=== PATIENT | female | born 1945 ===

== ENCOUNTER 2024-09-17 15:39 | Emergency (ER) | payer MEDICARE, SELFPAY ==
--- OUTSIDE RECORDS SUMMARY | 2024-09-17 15:43 | XMS_ITS | Encounter Summary ---
Author Organization [facility] Healthcare Address [address] [place] [address] Care Team Providers Care Life Insurance Actuary Name Role Phone HiteshBridgette paulajane Crandall DO Primary Care Provider [phone] Raz Hancock MD Unavailable [phone] Maggie Hill RN Unavailable Yong Nguyễn MA Unavailable [phone] Encounter Details Date Type Department Care Team (Late st Contact Info) Description 04/14/2022 Orders Only [facility] Surgeon [address] [place] [address] Raz Hancock MD [address] [facility] [phone] [place] [address] Calculus of gallbladder with cholecystitis without biliary obstruction, unspecified cholecystitis acuity (Primary Dx) Social History Tobacco Use Types Packs/Day Years Used Date Smoking Tobacco: Former Smokeless Tobacco: Never Comments:Smoking History Pac ks/day: 5 Cigarettes Alcohol Use Standard Drinks/Week Comments Yes 0 (1 standard drink = 0.6 oz pur e alcohol) Humiliation, Afraid, Rape, and Kick questionnair e Answer Date Recorded Fear of Current or Ex-Partner No Emotionally Abused No 03/30/2019 Physically Abused No 03/30/2019 Sexually Abused No 03/30/2019 Social Connection and Isolat ion Panel [NHANES] Answer Date Recorded Frequency of Communication w ith Friends and Family More than three times a week 03/30/2019 Frequency of Social Gatherin gs with Friends and Family More than three times a week 03/30/2019 Attends Evangelical Services 1 to 4 times per year 03/30/2019 Active Member of Clubs or Organizations Yes 03/30/2019 Attends Club or Organization Meetings 1 to 4 keo es per year 03/30/2019 Marital Status 03/30/2019 Overall Financial Resource Strain (CARDIA) Answe r Date Recorded Difficulty of Paying Living Expenses Not hard at all 03/30/2019 PHQ-2 Answer Date Recorded PHQ-2 Total Score (If total score is 3 or more points, staff should administer the PHQ-9) 0 05/01/2021 [facility] - Occupational Stress Questionnaire Answer Date Recorded Feeling of Stress Not at all 03/30/2019 Exercise Vital Sign Answer Date Recorde d Days of Exercise per Week 7 days 2019 Minutes of Exercise per Session 30 min 03/30/2019 Hunger Vital Sign Answer Date Recorded Worried About Running Out of Food in the Last Ye ar Never true 03/30/2019 Ran Out of Food in the Last Year Never true 03/30/2019 PRAPARE - Transportation Answer Date Re corded Lack of Transportation (Medical) No 03/30/2019 Lack of Transportation (Non-Medical) No 03/30/2019 Comments No Sex and Gender Information Value Date Recorded Sex Assigned at Not on file Legal Sex Female 11:36 AM [employer] Gender Identity Not on file Sexual Orientation Not on file documented as of this encounter Progress Notes * Julieta Shane - 04/14/2022 2:01 PM CST hida documented in this encounter Plan of Treatment Not on file documented as of this encounter Visit Diagnoses Diagnosis Calculus of gallbladder with cholecystitis without biliary obstruction, unspecified cholecystitis acuity- Primary documented in this encounter Care Teams Life Insurance Actuary Relationship Specialty Start Date End Date Tee Proctor DO [address] [place] [address] PCP - General Family Medicine 05/19/18 Raz Hancock MD [address] [place] [address] Consulting Physician General Surgery 04/25/22 Maggie Hill RN [address] [place] [address] Population Health Manager 04/29/22 06/19/22 Yogn Nguyễn MA [address] [place] [address] ACO Care Loan Documents Closer 01/07/24 01/10/24 documented as of this encounter
--- OUTSIDE RECORDS SUMMARY | 2024-09-17 15:43 | XMS_ITS | Patient Health Record ---
Author Organization [facility] Address [address] [place] [address] Support Name Relationship Address Phone MAITE BEE Guarantor Unknown [phone] Reason For Referral No Information Plan Of Treatment No Information Insurance Providers Payer Name Payer Address Payer Phone Subscriber Number Group Number Insured Name Patient Relationship to Insured Coverage Start Date Coverage End Date [facility] [address] [place] [phone] [id number] CARLITO BEE 4
--- OUTSIDE RECORDS SUMMARY | 2024-09-17 15:43 | XMS_ITS | Clinical Summary ---
Author Organization [facility] Address [address] [place] [id number] Phone Care Team Providers Care Supervisor [facility] Name Role Phone HiteshBridgette paulajane Crandall DO Primary Care Provider [phone] Raz Hancock MD Unavailable [phone] Allergies No known active allergies Medications cetirizine (ZyrTEC) 10 mg tablet Take 1 tablet (10 mg total) by mouth daily as needed Active melatonin 5 mg tablet Take 1 tablet (5 mg total) by mouth nightly Active estradioL (ESTRACE) 0.5 mg tablet Take 1 tablet (0.5 mg total) by mouth daily 30 tablet 11 06/19/2021 Active cholecalciferol (VITAMIN D-3) 25 mcg (1,000 unit) tablet Take 2 tablets (2,000 Units total) by mouth daily Active magnesium oxide (MAG-OX) 400 mg (241.3 mg elemental magnesium) tabletIndicatio ns:hypomagnesem ia Take 1 tablet (400 mg total) by mouth daily Active aspirin 81 mg enteric coated tablet Take 1 tablet (81 mg total) by mouth daily Active bacitracin-poly myxin B (POLYSPORIN) ophthalmic ointment Apply to left eye 2 (two) times a day 3.5 g 01/06/2024 Active ALPRAZolam (XANAX) 0.5 mg tabletIndicatio ns:Anxiety Take 1 tablet (0.5 mg total) by mouth nightly as needed for anxiety 90 tablet 1 05/03/2024 Active escitalopram (LEXAPRO) 10 mg tabletIndicatio ns:Anxiety TAKE 1 TABLET(10 MG) BY MOUTH DAILY 100 tablet 1 07/29/2024 Active amLODIPine (NORVASC) 10 mg tabletIndicatio ns:Renovascular hypertension,St age 3a chronic kidney disease (HCC) TAKE 1 TABLET(10 MG) BY MOUTH DAILY 100 tablet 1 07/29/2024 Active levothyroxine (SYNTHROID) 25 mcg tabletIndicatio ns:Hypothyroidi sm due to acquired atrophy of thyroid TAKE 1 TABLET(25 MCG) BY MOUTH DAILY 100 tablet 1 07/29/2024 Active Active Problems Problem Noted Date Diagnosed Date Traumatic complete tear of right rotator cuff Caregiver role strain 2021 Assessment & Plan (2021 12:53 PM CDT): 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 She feels better if is able to get a couple hours out of the house. She reports he has depression and is on medications. He's going through a tough time right now and that weighs on her. She feels her mood is well controlled with escitalopram. Restless leg 2021 Assessment & Plan (2021 12:52 PM CDT): Symptoms of jerking legs at night and also burning in legs and feet. Screen for iron deficiency, electrolyte abnormality. If labs normal, consider low dose pramipexole at HS. Gallbladder polyp 06/19/2021 Overview (06/19/2021): RUQ US at [facility] May 2021 demonstrated gallbladder polyp but no wall thickening or stones. Recommend repeating US of RUQ in one year, has been ordered for [facility]. Assessment & Plan (03/24/2022 1:42 PM TIE LOADER): Noted on ultrasound last May, will get updated ultrasound. Could be obstructive contributing to recurrent episodes right upper quadrant pain Assessment & Plan (2021 12:55 PM CDT): Noted on US of RUQ from May 2021. Recommend one year repeat in May 2022. Patient is agreeable. Gastroesophageal reflux disease without esophagi tis 06/14/2021 Assessment & Plan (2021 12:54 PM CDT): Asymptomatic, no longer on medication. Assessment & Plan (06/14/2021 2:30 PM CDT): She's noticed a lot of belching. Has epigastric discomfort. Avoid NSAIDs. One month of PPI given. Recommend anti reflux diet. 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 Continue careful follow up with dermatology. Hypothyroidism due to acquired atrophy of thyroi d 05/20/2018 Assessment & Plan (04/23/2022 5:34 PM TIE LOADER): On low-dose levothyroxine as an outpatient, continue on admission Assessment & Plan (10/31/2020 11:34 AM CDT): Doing well, refilled medication for her. Assessment & Plan (04/25/2020 11:39 AM TIE LOADER): She continues on levothyroxine 25mcg daily and TSH is normal. Continue current medication regimen. Assessment & Plan (04/04/2019 3:39 PM TIE LOADER): Thyroid labs are normal. Continue levothyroxine 25mcg daily. She reports bowels are more normal since starting on the levothyroxine. Assessment & Plan (11/30/2018 11:35 AM CDT): Patient continues on low-dose Synthroid, she reports that her symptoms remain well controlled. She previously had issues with constipation, dry skin and hair loss this is all resolved with a low-dose lisinopril. Continue with current management. Assessment & Plan (05/20/2018 12:33 PM CDT): Mild elevation in TSH noted toward the end of last year, may have been physiologic given her high stress. She is currently on a very low dose of Synthroid and tolerating well. Does have marked could decrease in her subjective symptoms, will continue with current therapy. Recent TSH was unremarkable. History of renal artery stenosis 02/02/2018 Assessment & Plan (04/25/2020 11:39 AM TIE LOADER): History of renal artery stenosis and L renal artery stent. Assessment & Plan (11/07/2019 11:27 AM CDT): History of renal artery stenosis with L renal artery stent. Assessment & Plan (02/02/2018 4:58 PM TIE LOADER): History of renal artery stenosis with L renal artery stent. Renal US/doppler exam normal last week. Stage 3a chronic kidney disease 01/26/2018 Assessment & Plan (01/13/2024 9:57 PM TIE LOADER): Stable on most recent labs. Continue with current medication regimen. Renally dose medications as needed Assessment & Plan (04/26/2022 11:29 AM TIE LOADER): Renal function stable, potassium decreased to 2.4, repeat electrolytes after IV replacement Assessment & Plan (05/01/2021 12:28 PM TIE LOADER): Last known GFR at 48. Recheck renal function today. Encourage good hydration. Keep blood pressure well controlled. Assessment & Plan (04/27/2020 2:20 PM TIE LOADER): Stage IIIa CKD. Has renal artery stenosis with L renal artery stent. Continue to monitor renal function carefully. Assessment & Plan (04/04/2019 3:39 PM TIE LOADER): Creatinine 1.1. Monitor. Stay well hydrated. Assessment & Plan (01/26/2018 3:05 PM TIE LOADER): Monitor renal function. BMI 21.0-21.9, adult 01/26/2018 Assessment & Plan (2021 12:54 PM CDT): Healthy weight. Assessment & Plan (06/14/2021 1:43 PM CDT): Healthy weight. Assessment & Plan (05/01/2021 12:00 PM TIE LOADER): Healthy weight. Assessment & Plan (10/31/2020 11:33 AM CDT): Healthy weight. Assessment & Plan (04/25/2020 11:38 AM TIE LOADER): Healthy weight. Assessment & Plan (11/07/2019 11:13 AM CDT): Healthy weight. Assessment & Plan (04/04/2019 4:03 PM TIE LOADER): Healthy weight. Assessment & Plan (03/05/2018 12:57 PM TIE LOADER): She is of healthy BMI. Assessment & Plan (02/02/2018 4:59 PM TIE LOADER): She is of healthy weight. Assessment & Plan (01/26/2018 3:05 PM TIE LOADER): She is of healthy weight. History of spinal surgery 07/09/2013 Overview (05/30/2016): History of back surgery History of hysterectomy 07/09/2013 Overview (05/30/2016): History of hysterectomy Vitamin D deficiency 01/31/2013 Overview (05/29/2016): Vitamin D deficiency Assessment & Plan (05/01/2021 12:32 PM TIE LOADER): She continues on vitamin D 2000 international units daily. Check vitamin D level today. Assessment & Plan (01/19/2018 12:57 PM TIE LOADER): Vitamin D level pending. Continue Vitamin D supplement. Insomnia 12/29/2012 Overview (05/28/2016): Insomnia Assessment & Plan (04/23/2022 5:34 PM TIE LOADER): Continue home medications on admission Assessment & Plan (11/30/2018 11:36 AM CDT): Patient continues to do well with her insomnia. She uses Xanax on an as-needed basis, rare use, only a few times per month. Patient previously was on Ambien and did not tolerate well. Will continue with current management plan. We discussed sleep hygiene again in depth today. Anxiety 12/29/2012 Overview (05/30/2016): Anxiety Assessment & Plan (04/23/2022 5:34 PM TIE LOADER): On Lexapro as an outpatient, continue on admission Assessment & Plan (2021 12:56 PM CDT): Well controlled with escitalopram 10mg and alprazolam 0.5mg daily PRN at HS. Assessment & Plan (05/01/2021 12:27 PM TIE LOADER): Doing very well on escitalopram 10mg daily. Uses alprazolam to help with sleep (script sent Apr 03 for 60 tablets). Assessment & Plan (10/31/2020 12:41 PM CDT): Reports escitalopram 10mg daily is helping with her mood. Uses alprazolam at HS to help with sleep. To continue current medications. Assessment & Plan (11/07/2019 11:26 AM CDT): She's still anxious and a little depressed. 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 Continues on escitalopram 10mg daily. Uses alprazolam at HS to help her sleep, once to twice weekly. She's staying active and doing yard work and puzzles at home. Monitor. Assessment & Plan (04/04/2019 3:38 PM TIE LOADER): She feels anxiety is stable. Currently on escitalopram 10mg daily. Has continuous amts of stress from sick family members. Daughter had successful TELEGRAPHER AGENT shunt revision but her (daughter's) broke pelvis. Autistic's son's case was dropped. is going blind and helps care for him. Sister's cancer is now gone. Monitor mood. Assessment & Plan (11/30/2018 11:35 AM CDT): Patient reports that her symptoms are relatively well controlled. She has known anxiety and takes Lexapro. Reports that with her going blind and her son-in-law having recent pelvic fracture this has increased her anxiety some, but overall she feels she is doing well. She did not wish to change the dose of her medication today. Patient was given strict return precautions, could consider increase in Lexapro to 20 mg. Assessment & Plan (05/20/2018 12:33 PM CDT): Symptoms better controlled on Lexapro. Patient had marked increase in her symptoms with multiple family issues, the seems to be resolving which is improving her anxiety overall. Will refill her Xanax today. Patient uses infrequently, low concern of abuse or dependency. Continue with current regimen. Assessment & Plan (03/05/2018 1:04 PM TIE LOADER): Doing a little better. Continues on escitalopram 10mg daily. Assessment & Plan (02/02/2018 5:01 PM TIE LOADER): She is going through an incredibly stressful period in life. Her son is being accused of being a stalker incorrectly and he has autism. He spent a night in penitentiary because of it and now has PTSD. 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 Multiple family members are sick. She helps care for her , who is blind from macular degeneration. Daughter recently had another TELEGRAPHER AGENT shunt placed for hydrocephalus. Brother from lung cancer. Sister has cancer, on immunotherapy for stage IV cancer. She does not want to start SSRI. She will let me know if changes her mind. Assessment & Plan (01/26/2018 3:04 PM TIE LOADER): Anxiety is worse. She did not want to increase escitalopram. I do think anxiety is playing a role in the hypertension to some degree. Monitor. Use alprazolam as needed for severe anxiety. Continue 10mg escitalopram. Assessment & Plan (01/19/2018 12:57 PM TIE LOADER): Continue lexapro and I will have Dr Charlie thibodeaux. Renovascular hypertension 02/23/1998 Overview (05/30/2016): Hypertension Assessment & Plan (04/26/2022 11:30 AM TIE LOADER): History of previous bilateral renal artery stenosis status post stenting more than 10 years ago. Resume amlodipine and observe Assessment & Plan (2021 12:52 PM CDT): Initial BP always high but better on recheck. Bp at goal, continue current antihypertensive regimen. Assessment & Plan (05/01/2021 12:30 PM TIE LOADER): She continues on amlodipine 5mg and HCTZ 25mg daily. Today BP is nearing 140/90. She reports white coat syndrome. Monitor BP closely. Follow up in six months. Assessment & Plan (10/31/2020 12:37 PM CDT): BP 140 systolic today. She does not take her medications until early afternoon so does not have medication in her system yet. Also reports mild white coat syndrome. Recommend she continue amlodipine 5mg daily, HCTZ 25mg daily. Follow up for physical in six months. Assessment & Plan (04/25/2020 11:39 AM TIE LOADER): Blood pressure is well controlled on current medication regimen. Assessment & Plan (11/07/2019 11:27 AM CDT): BP is acceptable. She reports it is always a little high in office than at home. 135/70 today. Monitor. Assessment & Plan (04/04/2019 3:37 PM TIE LOADER): Blood pressure elevated today, but has been normal recently. It was 122/[address] Chavez five days ago. BP at home reportedly 120s systolic. Recommend continuing current BP regimen and call me with three BP readings from home in one week. Assessment & Plan (11/30/2018 11:36 AM CDT): Well controlled in clinic today, continue with amlodipine and hydrochlorothiazide. Assessment & Plan (05/20/2018 12:34 PM CDT): Well controlled today. Will continue with current therapy. Of note patient has known history of renal artery stenosis, she had a follow-up ultrasound completed in January of 2018 that demonstrated no further evidence of stenosis. Assessment & Plan (03/05/2018 12:57 PM TIE LOADER): BP 134/78. BP cuff calibrates well. Her BP is very reactive to stress. Keep stress low. Continue with amlodipine 5mg daily and HCTZ 25mg daily. Follow up with Alondra in June as scheduled. Assessment & Plan (02/02/2018 5:02 PM TIE LOADER): BP 156/85 by my reading. Add HCTZ 25mg to amlodipine 5mg daily. Follow up in one week to 10 days for recheck. Bring meter from home. She may still need to add the ramipril back. Do not discard what she has left of old prescription. Assessment & Plan (01/26/2018 3:03 PM TIE LOADER): ER follow up for HTN. BP is in the 150s by my readings. Continue holding the ramipril and HCTZ. Need to make sure renal arteries are patent. Increase amlodipine to 5mg daily (full tablet). Get renal artery US. She will call to schedule. Provided the contact #. Follow up in one week. Monitor BP twice daily at home. Low salt diet. Limit caffeine to one cup daily. Assessment & Plan (01/19/2018 12:56 PM TIE LOADER): Bp is elevated today but this is likely due to timing of meds and skipping hctz due to not wanting to go to the bathroom as much. Continue ramipril and hctz, take bp at home and send to me. F/U in 6 months. DASH diet. Resolved Problems Problem Noted Date Diagnosed Date Resolved Date Right shoulder pain 01/29/2024 05/03/19 Acute pain of right shoulder 01/13/2024 05/02/2024 Assessment & Plan (01/13/2024 9:56 PM TIE LOADER): Recent ground level fall while walking her dog. History of chronic shoulder pain with previous rotator cuff injury requiring surgical intervention. Now with dramatic decrease in range of motion and severe pain. X-ray completed in the emergency department without evidence of acute fracture but does have significant arthritic changes. Suspect torn rotator cuff. Needs MRI, referral to ortho. Orders placed. Further plan pending results Multiple closed fractures of facial bone 01/13/2024 05/02/2024 Assessment & Plan (01/13/2024 9:57 PM TIE LOADER): Occurred after ground level fall. Seen by facial Plastic/Ophthalmology at [facility]. Has scheduled follow-up with ENT tomorrow. Swelling and bruising is improving. No pain with extraocular eye motions. No blurred or double vision. Overall is doing well. Continue with the use of ice, pain medication. Fall at home 01/06/2024 05/02/2024 Assessment & Plan (01/13/2024 9:56 PM TIE LOADER): Mechanical fall. Multiple facial fractures as discussed above. Right shoulder pain, suspect significant recurrent rotator cuff tear. Moderate protein-calorie malnutrition 05/23/2022 05/01/2023 Epigastric pain 05/20/2022 05/01/2023 Assessment & Plan (05/20/2022 6:02 PM CDT): Status post ERCP with stent placement yesterday, pain worsening in the epigastrium, tender to palpation on examination this afternoon, will obtain lipase level, suspect pancreatitis after ERCP. Continue with IV fluids, pain medications. 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 Mild pancreatitis at that time. GI: [place] 01/15: In today with similar pain Assessment & Plan (01/07/2023 11:43 AM TIE LOADER): History of this earlier in the year. Labs pending Assessment & Plan (05/20/2022 6:01 PM CDT): ERCP completed last evening, dual sphincterotomies with stent placement. Patient's pain is a bit worse this evening, will get lipase, continue with IV fluids, unable to tolerate clears due to significant nausea. Will adjust medications. Appreciate GI recommendations and care. Biliary dyskinesia 04/23/2022 Assessment & Plan (04/26/2022 11:31 AM TIE LOADER): Postop day 1, advanced diet and activity and observe Hypokalemia 04/23/2022 05/01/2023 Assessment & Plan (04/26/2022 11:30 AM TIE LOADER): Potassium down to 2.4 this morning repeat electrolytes following intravenous replacement Low ferritin 2021 05/01/2023 Overview (2021): Start OTC iron three days a week to see if it improves restless leg syndrome Multiple benign melanocytic nevi of upper and lower extremities and trunk 08/22/2021 05/02/2024 Right upper quadrant pain 06/14/2021 Assessment & Plan (03/24/2022 1:42 PM TIE LOADER): Recurrent episode of right upper quadrant pain, had similar instance last May. Pain is improving. Discussed conservative measures including Tylenol for pain control, low-fat diet, relative rest. Should she have fever, worsening pain or p.o. intolerance she will go to the emergency department. Will get CMP today, more urgent eval if LFTs up trending. Referral to General surgery given, will likely need cholecystectomy. Assessment & Plan (06/14/2021 2:29 PM CDT): RUQ pain since last week midweek to end of the week time frame. This was accompanied with R posterior/lateral ribcage pain and nausea with dry heaving. Symptoms improved this week. High suspicion for gallbladder pathology. RUQ US ordered through [facility] as poor availability within [facility] system. R ribcage and chest x rays ordered for today and labs. If patient has severe pain with dry heaving again, was instructed to go to ER for evaluation. Neoplasm of uncertain behavior of skin 06/03/2021 05/04/2023 Other seborrheic dermatitis 06/03/2021 05/04/2023 Actinic keratosis 06/03/2021 05/04/2023 Melanocytic nevi of trunk 01/05/2021 Seborrheic keratoses, inflamed 01/05/2021 05/04/2023 Seborrheic keratosis 01/05/2021 024 Solar lentiginosis 01/05/2021 Inflamed seborrheic keratosis 01/05/2021 05/02/2024 Skin exam for malignant neoplasm 04/25/2020 05/02/2022 Assessment & Plan (05/01/2021 12:32 PM TIE LOADER): Referral placed to dermatology at patient's request. History of having L upper thigh mole removed and it was a melanoma. Had Mohs surgery and has been going well. Follows with Dr. Campos at [facility]. Notable that daughter had melanoma as well. Patient is following with dermatology every four months. Assessment & Plan (04/25/2020 12:44 PM TIE LOADER): Abnormal papule with hyperpigmented spots in it on L upper thigh. Has a papule on plantar surface of R foot that is less concerning. To follow up with Dr. Boykin for skin exam. Notable that her daughter had melanoma and required a panel of lymph nodes to be removed. Herpes zoster without complication 04/04/2019 05/01/2023 Assessment & Plan (04/04/2019 4:09 PM TIE LOADER): L scalp rash c/w shingles. She has pain into scalp and behind the ear. Recommend treatment with valacyclovir 1g TID. Call me in one week for update on rash and discomfort. Reports pain in her head is tolerable and does not wish to start gabapentin right now. Warned to be cautious around women, immunocompromised hosts, and children under age 1 and keep rash covered around these groups. Encounter for Medicare annual wellness exam 04/04/2019 05/02/2022 Assessment & Plan (05/01/2021 12:34 PM TIE LOADER): 75 yr old presents for annual medicare wellness visit. Mammogram and DEXA are planned for next month. No longer gets colon screening at her age. She is still seeing gynecology yearly, but likely does not need to continue with well woman exams at her age. She will discuss with her electric serviceman if okay to discontinue. Fasting labs were drawn today. Recommend BP check in six months for follow up. Assessment & Plan (04/25/2020 12:43 PM TIE LOADER): 74 yr old presents with annual physical exam. She is due for mammogram and agrees to call and schedule, order was placed. Is still following with DELIVERY TRUCK DRIVER. Last DEXA in 2012 was normal. DELIVERY TRUCK DRIVER is following her DEXAs now. Has completed colon screening, now over age 75. Fasting labs were d/w her. Vitals are stable. Follow up recommended in six months. Assessment & Plan (04/04/2019 4:06 PM TIE LOADER): 73 year old presents for annual physical exam. She's UTD with DELIVERY TRUCK DRIVER. Colonoscopy is UTD. She's also 73 and does not require any further routine screening. Mammogram is UTD. DEXA scan she'd like to hold off on. She reports the last scan was normal. Has family history of stroke. TG and total cholesterol above goal, but HDL and LDL are normal. Recommend monitoring. Consider starting statin given family history. She'd like to hold off for now. Has rash on L posterior neck that is consistent with shingles. Treat with valacyclovir. Call back in one week for phone follow up and will need OV if not improving or if worse. TSH (thyroid-stimulating hormone deficiency) 9 03/26/2018 Abnormal TSH 03/05/2018 04/04/2019 Assessment & Plan (03/05/2018 1:02 PM TIE LOADER): TSH was a little high at end of December. Recheck at the end of the month as scheduled. Disorder of bone 02/03/2013 06/06/2022 Arthralgia of shoulder 01/29/201305/02 Assessment & Plan (01/19/2018 12:55 PM TIE LOADER): Not able to do yoga. Ortho wants to do a replacement but she is not ready. Renal artery stenosis 12/29/20122017 Overview (05/30/2016): Renal artery stenosis Assessment & Plan (01/26/2018 3:05 PM TIE LOADER): She had stent placed 10 years ago in L renal artery. Get US of renals this week. Renal function is okay. Creatinine was 1.05 with EGFR of 52 in ER a couple days ago. Biliary colic 05/01/2023 Immunizations Immunization Administration Dates Next Due Influenza, Quad, Adjuvantate d, Intramuscular 01/23/2023 Influenza, Quadrivalent, Tori l Culture-based MDCK, Preservative Free, Antibiotic Free, Intramuscular 01/20/2022,12/16/2019 Influenza, Quadrivalent, Spl it, Preservative Free, Intramuscular 01/22/2021 Influenza, Split 01/14/2010 Influenza, Trivalent, High D ose, Split, Preservative Free, Intramuscular 11/30/2018,01/19/2018,01/13/2017,01/09,12/25/2014,11/30/2012,11/30/2012 ,11/28/2011,2010 Influenza, Trivalent, IM (MDV) 12/09/2013 Influenza, Unspecified 01/27/2023,2021,2021(Defer red: Patient Refused),11/23/2020 Pfizer SARS-CoV-2 Monovalent Vaccination (12+ Yrs) PURPLE 06/28/2020,04/28/2020,04/12/2020,04/05 Pneumococcal Conjugate PCV 13 12/25/2014, 010 Pneumococcal Polysaccharide PPV23 03/09/2009 Tdap 01/05/2024, 4(Deferred: Patient Refused - Medicare, cannot give),11/28/2011 ZOSTER Recombinant 05/04/2023(Deferred: Patient Refused - Medicare, cannot give) Surgical History Surgery Date Site/Laterality Comments HYSTERECTOMY Hysterectomy ROTATOR CUFF REPAIR BICEPS TENDON REPAIR BREAST LUMPECTOMY 02/23/1995 - 02/23/1996 benign Medical History Medical History Date Comments Hypertension Hypertension Renal artery stenosis Vitamin D deficiency History of back surgery Insomnia Anxiety Raynaud disease Menopause ovarian failure Family History Medical History Relation Name Comments Lung cancer Brother 2 Cancer, lung; Lung cancer Brother 3 Cancer -lung; C ause of : Cancer -lung Other Father blood clot to h eart after surg; Cause of : blood clot to heart after surg Hypertension Mother Hypertension; Kidney failure Mother kidney failur e; Stroke Mother Stroke; Cause o f : Stroke Other Other 1 Family history of Cancer -throat; Stroke Other 2 Family history of Stroke; Hypertension Other 3 Family history of Hypertension; Other Other 4 No family histo ry of Cancer, breast; Other Other 5 No family histo ry of Cervical cancer; Other Other 6 No family histo ry of Ovarian cancer; Other Other 7 No family histo ry of Cancer, colon; Other Sister 2 Alive and well; Relation Name Status Comments Brother 1 (Age 74) Brother 2 Brother 3 Father (Age 65) Mother (Age 79) Other 1 Other 2 Other 3 Other 4 Other 5 Other 6 Other 7 Sister 1 Alive Sister 2 Social History Tobacco Use Types Packs/Day Years Used Date Smoking Tobacco: Former Passive Smoke Exposure: Never Smokeless Tobacco: Never Tobacco Cessation:Counseling Given: Not Answered Comments:Smoking History Packs/day: 5 Cigarettes Alcohol Use Standard Drinks/Week Comments Yes 0 (1 standard drink = 0.6 oz pur e alcohol) Humiliation, Afraid, Rape, and Kick questionnair e Answer Date Recorded Fear of Current or Ex-Partner No Emotionally Abused No 03/30/2019 Physically Abused No 03/30/2019 Sexually Abused No 03/30/2019 Social Connection and Isolat ion Panel [NHANES] Answer Date Recorded In a typical week, how many times do you talk on the phone with family, friends, or neighbors? More than three times a week 06/12/2022 How often do you get togethe r with friends or relatives? More than three times a week 06/12/2022 How often do you attend chur ch or sikhism services? 1 to 4 times per year 06/12/2022 Do you belong to any clubs o r organizations such as uatsdin groups, unions, fraternal or athletic groups, or school groups? No 06/12/2022 How often do you attend meet ings of the clubs or organizations you belong to? Never 06/12/2022 Are you , , di vorced, , never , or living with a partner? 06/12/2022 AUDIT-C Answer Date Recorded Q1: How often do you have a drink containing alc ohol? 2-3 times a week 06/04/2022 Q2: How many drinks containi ng alcohol do you have on a typical day when you are drinking? 1 or 2 06/04/2022 Frequency of Binge Drinking Not on file 05/24 Overall Financial Resource Strain (CARDIA) Answe r Date Recorded How hard is it for you to pa y for the very basics like food, housing, medical care, and heating? Not hard at all 06/12/2022 PHQ-2 Answer Date Recorded PHQ-2 Total Score (If total score is 3 or more points, staff should administer the PHQ-9) 0 05/03/2024 [facility] - Occupational Stress Questionnaire Answer Date Recorded [...] PRAPARE - Transportation Answer Date Re corded In the past 12 months, has l ack of transportation kept you from medical appointments or from getting medications? No 05/25 In the past 12 months, has l ack of transportation kept you from meetings, work, or from getting things needed for daily living? No 06/12/2022 Housing Stability Vital Sign Answer Mohan e Recorded In the last 12 months, was t here a time when you were not able to pay the mortgage or rent on time? No 06/12/2022 In the last 12 months, how many places have you lived? 1 06/12/2022 In the last 12 months, was t here a time when you did not have a steady place to sleep or slept in a usp (including now)? No 06/12/2022 Personal Safety Answer Date Recorded Have you ever been in or are you currently in a harmful physical or emotional relationship or is someone making you feel afraid or unsafe? Denies 01/06/2024 Comments No Sex and Gender Information Value Date Recorded Sex Assigned at Not on file Legal Sex Female 11:36 AM TIE LOADER Gender Identity Not on file Sexual Orientation Not on file Obstetrics History Para Term AB IAB SAB Ectopic Multiple Livin g Live Births 4 4 Date Outcome GA Total Labor Labor/2nd/3rd Weight Sex Type Anes PTL Christina A1 A5 Name Clin Para Para Para Para Last Filed Vital Signs Vital Sign Reading Time Taken Comments Blood Pressure 130/72 05/03/2024 11:28 AM CDT Pulse 77 05/03/2024 11:28 AM CDT Temperature 36.7 C (98 F) 01/06/2024 2:48 AM TIE LOADER Respiratory Rate 16 01/06/2024 10:00 AM TIE LOADER Oxygen Saturation 96% 05/03/2024 11:28 AM CDT Inhaled Oxygen Concentration - - Weight 57.6 kg (127 lb) 05/03/2024 11:28 AM CDT Height 170.2 cm (5' 7) 05/03/2024 11:28 AM CDT Body Mass Index 19.89 05/03/2024 11:28 AM CDT Plan of Treatment Health Maintenance Due Date Last Done Comments Zoster Vaccine (1 of 2) 11/11/1993 Covid-19 Vaccine (2023-2 5 season) 2023 06/28/2020, 04/28/2020, 04/12/2020, Additional history exists Osteoporosis Screening-Bone Density Scan 10/08/2024 10/08/2022, 01/03/2016, 01/01/2016, Additional history exists Influenza Vaccine (#1) 2024 , 01/23/2023, 02/06/2022, Additional history exists Depression Screening 05/03/2025 05/03/2024, 05/04/2023, 05/02/2022, Additional history exists Fall Risk Assessment 05/03/2025 05/03/2024, 05/04/2023, 06/04/2022, Additional history exists Well Visit 65+ 05/03/2025 05/03/2024, 04/23, 05/02/2022, Additional history exists DTaP/Tdap/Td Vaccine (3 - Td or Tdap) 01/04/2034 01/05/2024, 11/28/2011 Pneumococcal vaccine 65+ Completed 015, 03/09/2009, 02/23/2009 Colon Cancer Screening-CT Colonography Discontinued 03/13/2015, 02/23/2015 Colon Cancer Screening-Colonoscopy Discontinued 03/13/2015, 02/23/2015 Colon Cancer Screening-DNA Stool Discontinued 03/13/19 16, 02/23/2015 Colon Cancer Screening-FIT Discontinued 03/13/2015, Colon Cancer Screening-FOBT Discontinued 03/13/2015, 0 02/23/2015 Colon Cancer Screening-Sigmoidoscopy Discontinued 03/13/2015, 02/23/2015 Colorectal Cancer Screening Discontinued Hepatitis B Screening Completed 05/03/2024 Goals Goal Patient Goal Type Associated Problems Recent Progress Patient-Stated? Author HILDA General Goal - Patient schedules and keeps appointments with all recommended providers ACO Care Management On track(2022 9:50 AM CDT) Maggie Villeda, MADHAVI Note: Problem: Potential for medical complications and readmission if follow-up appointments are not scheduled Interventions: - Ensure all follow-up appointments are scheduled, all prescribed medications have been received. - Address any barriers for keeping scheduled appointment. - Coordinate with patient/caregiver(s) to ensure patient is able to keep scheduled appointment. - Emphasize importance of keeping scheduled appointments. - Identify and discuss questions for next provider visit. - Follow up with patient after scheduled appointment(s) to review any new orders or changes made to medication regimen. HILDA General Goal - Patient is knowledgeable about condition when worsening and how to respond ACO Care Management On track(2022 9:50 AM CDT) Maggie Villeda RN Note: Problem: Knowledge deficit related to signs and symptoms of worsening condition Interventions: - Assess patient's level of understanding related to their condition(s), specific medications and self-management of their chronic conditions. - Send educational materials to patient related to their chronic condition, including signs and symptoms, self-management actions, and serious symptoms that require urgent medical intervention. - Assist patient/provider in developing an action plan for symptom management. - Review with patient weekly: s/s worsening condition, self-management actions to take, when to call CM or provider. Medical Devices Explanted Type Area Balance Recesser Device Identifier Shelf Expiration Date Model / Serial / Lot [employer] Quevedo Flexi-Stent 5fr 3cm Small Pigtail Flexible .035in Stent 6551 - [id number] Implanted:Qty: 1 on 05/19/2022 at [facility] Explanted:Qty: 1 on 06/04/2022 at [facility] Stent N/A: Pancreas [employer] 09/22/2024 [id number] / / [id number] Description:Not present at o nset of procedure [employer] Wallflex 8mm 8.5fr 60mm 194cm Rapid Exchange Full Cover Closed [id number] - [id number] Implanted:Qty: 1 on 05/19/2022 by Kip Vanessa MD at [facility] Explanted:Qty: 1 on 06/04/2022 by Kip Vanessa MD at [facility] Stent N/A: Bile Duct [employer] 03/16/2024 [id number] / / [id number] Procedures Procedure Name Priority Date/Time Associated Diagnosis Comments DEXA AXIAL SKELETON BONE DENSITY 1 OR MORE SITES Schedule Routine, Read Routine (OP Routine) 10/08/2022 9:52 AM CDT Postmenopausal COLONOSCOPY REPORT 03/13/2015 from Last 3 Months or Most Recently Relevant to Health Maintenance Results * Dexa Axial Skeleton Bone Density 1 or 2 Site (10/08/2022 9:52 AM CDT) Anatomical Region Laterality Modality Body N/A Digital Radiogra phy 10/08/2022 10:0 1 AM CDT Impressions 10/08/2022 10:01 AM CDT Low bone mass (osteopenia) which depending on the clinical circumstances may result in a moderate increased risk of fragility fracture. If followup is to be done, for technical reasons, it should be performed on this same machine. Electronically signed by: Vanessa Novak M.D. Narrative 10/08/2022 10:01 AM CDT EXAM: Bone mineral density examination HISTORY: Evaluate for postmenopausal osteoporosis. DXA BMD was done at [facility] on a [facility] W. Precision testing at this site is not yet available. BMD L1-L4 is 1.082 g/sq cm corresponding to a T score of 0.3. BMD left femoral neck is 0.718 g/sq cm corresponding to a T score of -1.2. BMD total left hip is 0.909 g/sq cm corresponding to a T score of -0.3. The 10-year fracture risk for major osteoporotic fracture: Not calculated. The 10-year fracture risk for hip fracture: Not calculated. COMPARISON: Prior not valid Procedure Note Vanessa Novak MD - 10/08/2022 EXAM: Bone mineral density examination HISTORY: Evaluate for postmenopausal osteoporosis. DXA BMD was done at [facility] on a [facility]. Precision testing at this site is not yet available. BMD L1-L4 is 1.082 g/sq cm corresponding to a T score of 0.3. BMD left femoral neck is 0.718 g/sq cm corresponding to a T score of -1.2. BMD total left hip is 0.909 g/sq cm corresponding to a T score of -0.3. The 10-year fracture risk for major osteoporotic fracture: Not calculated. The 10-year fracture risk for hip fracture: Not calculated. COMPARISON: Prior not valid IMPRESSION: Low bone mass (osteopenia) which depending on the clinical circumstances may result in a moderate increased risk of fragility fracture. If followup is to be done, for technical reasons, it should be performed on this same machine. Electronically signed by: Vanessa Novak M.D. Maggie Ward DNP IMG DXA PROCEDURES Final Res ult * COLONOSCOPY REPORT (03/13/2015) Anatomical Region Laterality Modality Other Narrative 03/13/2015 Ordered by an unspecified provider. Historical Provider GI PROCEDURE ORDERABLES F inal Result from Last 3 Months or Most Recently Relevant to Health Maintenance Insurance [place] [address] [facility] [place] [address] Advance Directives For more information, please contact: [phone] * Full Code (Latest Code Status on File) Date Activated Date Inactivated Comments 06/04/2022 11:40 AM 06/04/2022 5:20 PM * Full Code Date Activated Date Inactivated Comments 05/19/2022 1:13 AM 05/23/2022 6:28 PM * Full Code Date Activated Date Inactivated Comments 04/23/2022 11:21 AM 04/27/2022 4:55 PM Care Teams Supervisor [employer] Relationship Specialty Start Date End Date Tee Proctor DO [address] [address] PCP - General Family Medicine 05/19/18 Raz Hancock MD [address] [address] Consulting Physician General Surgery 04/25/22
--- OUTSIDE RECORDS SUMMARY | 2024-09-17 15:43 | XMS_ITS | Clinical Summary ---
Author Organization [facility] Address [address] [place] [address] Care Team Providers Care Machine Heddle Cleaner Name Role Phone HiteshTee paula Phoebe HOPE Primary Care Provider [phone] Allergies No known active allergies Medications amlodipine 5 MG tablet Take 5 mg by mouth daily. Active hydrochlorothia zide 25 MG tablet Take 25 mg by mouth every morning. Active estradiol 1 MG tablet Take 1 mg by mouth daily. Active levothyroxine 25 MCG tablet Take 25 mcg by mouth every morning. Active escitalopram 5 MG tablet Take 5 mg by mouth nightly. Active cetirizine 10 MG tablet Take 10 mg by mouth daily as needed for Allergies. Active ALPRAZolam 0.5 MG tablet Take 1 tablet by mouth nightly. 0 05/20/2018 Active Cholecalciferol (VITAMIN D) 2000 units Tab Take 1 tablet by mouth daily. Active Magnesium Oxide 420 MG Tab Take 1 tablet by mouth daily. Active multi vitamin/mineral s tablet Take 1 tablet by mouth daily. Active oxyCODONE-aceta minophen 5-325 MG tablet Take 1-2 tablets by mouth every 4 (four) hours as needed for Pain. 40 tablet 09/06/2018 Active Family History Medical History Relation Comments Hypertension Mother Stroke Mother Cancer Sister melanoma Relation Status Comments Mother Sister Social History Tobacco Use Types Packs/Day Years Used Date Smoking Tobacco: Never Smokeless Tobacco: Never Alcohol Use Standard Drinks/Week Comments Yes 0 (1 standard drink = 0.6 oz pur e alcohol) 4 drinks monthly Comments Unknown Sex and Gender Information Value Date Recorded Sex Assigned at Not on file Legal Sex Female 4:40 PM CDT Gender Identity Not on file Sexual Orientation Not on file Last Filed Vital Signs Vital Sign Reading Time Taken Comments Blood Pressure 137/70 09/06/2018 10:33 AM CDT Pulse 66 09/06/2018 10:33 AM CDT Temperature 36.7 C (98 F) 09/06/2018 10:33 AM CDT Respiratory Rate 16 09/06/2018 10:33 AM CDT Oxygen Saturation 100% 09/06/2018 10:33 AM CDT Inhaled Oxygen Concentration - - Weight 60.6 kg (133 lb 9.6 oz) 09/06/2018 6:34 A M CDT Height 170.2 cm (5' 7) 09/06/2018 6:34 AM CDT Body Mass Index 20.92 09/06/2018 6:34 AM CDT Plan of Treatment Health Maintenance Due Date Last Done Comments Zoster Vaccines (1 of 2) 11/11/1993 Annual Medicare Wellness Visit 11/11/2008 Dexa Scan (General) 11/11/2008 RSV Immunization or 60+ Years (1 - 1-dose 75+ series) 11/11/2018 DTaP, Tdap and Td Vaccines ( 2 - Td or Tdap) 11/27/2021 11/28/2011 COVID-19 Vaccine ( - 2023-2 5 season) 2023 Pneumococcal Vaccine: 50+ Years Completed 12/25/2014, 03/09/2009, 02/23/2009 Meningococcal B Vaccine Aged Out No l onger eligible based on patient's age to complete this topic Meningococcal Vaccine Aged Out No jayesh jodi eligible based on patient's age to complete this topic RSV Immunizations Under 20 Months Aged Out No longer eligible b ased on patient's age to complete this topic Medical Devices Implanted Type Area Manager Program Device Identifier Shelf Expiration Date Model / Serial / Lot [employer] Fuseforce Nitinol Staple Kit Implanted:Qty: 1 on 09/06/2018 by Raz Fermin DPM at [facility] Right: Foot [employer] 04/08/2023 [id number] / / [id number] 2.0 X 12 Snap Off Screw Implanted:Qty: 1 on 09/06/2018 by Raz Fermin DPM at [facility] [employer] [id number] / / 2.0 X 14 Snap Off Screw Implanted:Qty: 1 on 09/06/2018 by Raz Fermin DPM at [facility] [employer]: [employer] [id number] / / X-Small Phalinx Implant Implanted:Qty: 2 on 09/06/2018 by Raz Fermin DPM at [facility] [employer] [id number] / / Explanted Type Area Manager Program Device Identifier Shelf Expiration Date Model / Serial / Lot 2.0 X 12 Snap Off Screw Explanted:Qty: 2 on 09/06/2018 at [facility] [id number] / / Description:WASTED DUE TO BE ING THE WRONG SIZE Insurance [facility] Care Teams Machine Heddle Cleaner Relationship Specialty Start Date End Date Tee Proctor DO [address] [facility] [address] [place] [address] PCP - General FAMILY PRACTICE 09/06/18
--- OUTSIDE RECORDS SUMMARY | 2024-09-17 15:43 | XMS_ITS | Referral Summary ---
Author Organization [facility] Address [address] [place] [phone] Phone Care Team Providers Care In Store Marketing Representative Name Role Phone HiteshBridgette paulajane Crandall DO Primary Care Provider [phone] Raz Hancock MD Unavailable [phone] Allergies No known active allergies Medications cetirizine [...] in one year, has been ordered for [facility]. 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 Continue careful follow up with dermatology. Hypothyroidism due to acquired atrophy of thyroi d 05/20/2018 Assessment & Plan (04/23/2022 5:34 PM BUSINESS BANKER): On low-dose levothyroxine as an outpatient, continue on admission Assessment & Plan (10/31/2020 11:34 AM CDT): Doing well, refilled medication for her. Assessment & Plan (04/25/2020 11:39 AM BUSINESS BANKER): She continues on levothyroxine 25mcg daily and TSH is normal. Continue current medication regimen. Assessment & Plan (04/04/2019 3:39 PM BUSINESS BANKER): Thyroid labs are normal. Continue levothyroxine 25mcg [...] 02/02/2018 Assessment & Plan (04/25/2020 11:39 AM BUSINESS BANKER): History of renal artery stenosis and L renal artery stent. Assessment & Plan (11/07/2019 11:27 AM CDT): History of renal artery stenosis with L renal artery stent. Assessment & Plan (02/02/2018 4:58 PM BUSINESS BANKER): History of renal artery stenosis with L renal artery stent. Renal US/doppler exam normal last week. Stage 3a chronic kidney disease 01/26/2018 Assessment & Plan (01/13/2024 9:57 PM BUSINESS BANKER): Stable on most recent labs. Continue with current medication regimen. Renally dose medications as needed Assessment & Plan (04/26/2022 11:29 AM BUSINESS BANKER): Renal function stable, potassium decreased to 2.4, repeat electrolytes after IV replacement Assessment & Plan (05/01/2021 12:28 PM BUSINESS BANKER): Last known GFR at 48. Recheck renal function today. Encourage good hydration. Keep blood pressure well controlled. Assessment & Plan (04/27/2020 2:20 PM BUSINESS BANKER): Stage IIIa CKD. Has renal artery stenosis with L renal artery stent. Continue to monitor renal function carefully. Assessment & Plan (04/04/2019 3:39 PM BUSINESS BANKER): Creatinine 1.1. Monitor. Stay well hydrated. Assessment & Plan (01/26/2018 3:05 PM BUSINESS BANKER): Monitor renal function. BMI 21.0-21.9, adult 01/26/2018 Assessment & Plan (2021 12:54 PM CDT): Healthy weight. Assessment & Plan (06/14/2021 1:43 PM CDT): Healthy weight. Assessment & Plan (05/01/2021 12:00 PM BUSINESS BANKER): Healthy weight. Assessment & Plan (10/31/2020 11:33 AM CDT): Healthy weight. Assessment & Plan (04/25/2020 11:38 AM BUSINESS BANKER): Healthy weight. Assessment & Plan (11/07/2019 11:13 AM CDT): Healthy weight. Assessment & Plan (04/04/2019 4:03 PM BUSINESS BANKER): Healthy weight. Assessment & Plan (03/05/2018 12:57 PM BUSINESS BANKER): She is of healthy BMI. Assessment & Plan (02/02/2018 4:59 PM BUSINESS BANKER): She is of healthy weight. Assessment & Plan (01/26/2018 3:05 PM BUSINESS BANKER): She is of healthy weight. History of spinal surgery 07/09/2013 Overview (05/30/2016): History of back surgery History of hysterectomy 07/09/2013 Overview (05/30/2016): History of hysterectomy Vitamin D deficiency 01/31/2013 Overview (05/29/2016): Vitamin D deficiency Assessment & Plan (05/01/2021 12:32 PM BUSINESS BANKER): She continues on vitamin D 2000 international units daily. Check vitamin D level today. Assessment & Plan (01/19/2018 12:57 PM BUSINESS BANKER): Vitamin D level pending. Continue Vitamin D supplement. Insomnia 12/29/2012 Overview (05/28/2016): Insomnia Assessment & Plan (04/23/2022 5:34 PM BUSINESS BANKER): Continue home medications on admission Assessment & [...] Anxiety Assessment & Plan (04/23/2022 5:34 PM BUSINESS BANKER): On Lexapro as an outpatient, continue on admission Assessment & Plan (2021 12:56 PM CDT): Well controlled with escitalopram 10mg and alprazolam 0.5mg daily PRN at HS. Assessment & Plan (05/01/2021 12:27 PM BUSINESS BANKER): Doing very well on escitalopram 10mg daily. [...] Monitor. Assessment & Plan (04/04/2019 3:38 PM BUSINESS BANKER): She feels anxiety is stable. Currently on escitalopram 10mg daily. Has continuous amts of stress from sick family members. Daughter had successful EX[employer] CUT[employer] shunt revision but her (daughter's) broke pelvis. [...] regimen. Assessment & Plan (03/05/2018 1:04 PM BUSINESS BANKER): Doing a little better. Continues on escitalopram 10mg daily. Assessment & Plan (02/02/2018 5:01 PM BUSINESS BANKER): She is going through an incredibly stressful period in life. Her son is being accused of being a stalker incorrectly and he has autism. He spent a night in skilled nursing because of it and now has PTSD. She is paying for his city attorney and counseling services. Multiple family members are sick. She helps care for her , who is blind from macular degeneration. Daughter recently had another EXCELSIOR CUTTER shunt placed for hydrocephalus. Brother from lung cancer. Sister has cancer, on immunotherapy for stage IV cancer. She does not want to start SSRI. She will let me know if changes her mind. Assessment & Plan (01/26/2018 3:04 PM BUSINESS BANKER): Anxiety is worse. She did not want to increase escitalopram. I do think anxiety is playing a role in the hypertension to some degree. Monitor. Use alprazolam as needed for severe anxiety. Continue 10mg escitalopram. Assessment & Plan (01/19/2018 12:57 PM BUSINESS BANKER): Continue lexapro and I will have Dr Charlie thibodeaux. Renovascular hypertension 02/23/1998 Overview (05/30/2016): Hypertension Assessment & Plan (04/26/2022 11:30 AM BUSINESS BANKER): History of previous bilateral renal artery stenosis status post stenting more than 10 years ago. Resume amlodipine and observe Assessment & Plan (2021 12:52 PM CDT): Initial BP always high but better on recheck. Bp at goal, continue current antihypertensive regimen. Assessment & Plan (05/01/2021 12:30 PM BUSINESS BANKER): She continues on amlodipine 5mg and HCTZ [...] months. Assessment & Plan (04/25/2020 11:39 AM BUSINESS BANKER): Blood pressure is well controlled on current medication regimen. Assessment & Plan (11/07/2019 11:27 AM CDT): BP is acceptable. She reports it is always a little high in office than at home. 135/70 today. Monitor. Assessment & Plan (04/04/2019 3:37 PM BUSINESS BANKER): Blood pressure elevated today, but has been [...] stenosis. Assessment & Plan (03/05/2018 12:57 PM BUSINESS BANKER): BP 134/78. BP cuff calibrates well. Her BP is very reactive to stress. Keep stress low. Continue with amlodipine 5mg daily and HCTZ 25mg daily. Follow up with Alondra in June as scheduled. Assessment & Plan (02/02/2018 5:02 PM BUSINESS BANKER): BP 156/85 by my reading. Add HCTZ 25mg to amlodipine 5mg daily. Follow up in one week to 10 days for recheck. Bring meter from home. She may still need to add the ramipril back. Do not discard what she has left of old prescription. Assessment & Plan (01/26/2018 3:03 PM BUSINESS BANKER): ER follow up for HTN. BP is [...] daily. Assessment & Plan (01/19/2018 12:56 PM BUSINESS BANKER): Bp is elevated today but this is [...] 05/02/2024 Assessment & Plan (01/13/2024 9:56 PM BUSINESS BANKER): Recent ground level fall while walking her [...] 05/02/2024 Assessment & Plan (01/13/2024 9:57 PM BUSINESS BANKER): Occurred after ground level fall. Seen by facial Pl[facility] at [facility]. Has scheduled follow-up with ENT tomorrow. Swelling and bruising is improving. No pain with extraocular eye motions. No blurred or double vision. Overall is doing well. Continue with the use of ice, pain medication. Fall at home 01/06/2024 05/02/2024 Assessment & Plan (01/13/2024 9:56 PM BUSINESS BANKER): Mechanical fall. Multiple facial fractures as discussed [...] pain Assessment & Plan (01/07/2023 11:43 AM BUSINESS BANKER): History of this earlier in the year. [...] 04/23/2022 Assessment & Plan (04/26/2022 11:31 AM BUSINESS BANKER): Postop day 1, advanced diet and activity and observe Hypokalemia 04/23/2022 05/01/2023 Assessment & Plan (04/26/2022 11:30 AM BUSINESS BANKER): Potassium down to 2.4 this morning repeat electrolytes following intravenous replacement Low ferritin 2021 05/01/2023 Overview (2021): Start OTC iron three days a week to see if it improves restless leg syndrome Multiple benign melanocytic nevi of upper and lower extremities and trunk 08/22/2021 05/02/2024 Right upper quadrant pain 06/14/2021 Assessment & Plan (03/24/2022 1:42 PM BUSINESS BANKER): Recurrent episode of right upper quadrant pain, [...] through [facility] as poor availability within [facility] system. R ribcage and chest [...] 05/02/2022 Assessment & Plan (05/01/2021 12:32 PM BUSINESS BANKER): Referral placed to dermatology at patient's request. History of having L upper thigh mole removed and it was a melanoma. Had Mohs surgery and has been going well. Follows with Dr. Campos at [facility]. Notable that daughter had melanoma as well. Patient is following with dermatology every four months. Assessment & Plan (04/25/2020 12:44 PM BUSINESS BANKER): Abnormal papule with hyperpigmented spots in it on L upper thigh. Has a papule on plantar surface of R foot that is less concerning. To follow up with Dr. Boykin for skin exam. Notable that her daughter had melanoma and required a panel of lymph nodes to be removed. Herpes zoster without complication 04/04/2019 05/01/2023 Assessment & Plan (04/04/2019 4:09 PM BUSINESS BANKER): L scalp rash c/w shingles. She has [...] 05/02/2022 Assessment & Plan (05/01/2021 12:34 PM BUSINESS BANKER): 75 yr old presents for annual medicare wellness visit. Mammogram and DEXA are planned for next month. No longer gets colon screening at her age. She is still seeing gynecology yearly, but likely does not need to continue with well woman exams at her age. She will discuss with her tube cutter if okay to discontinue. Fasting labs were drawn today. Recommend BP check in six months for follow up. Assessment & Plan (04/25/2020 12:43 PM BUSINESS BANKER): 74 yr old presents with annual physical exam. She is due for mammogram and agrees to call and schedule, order was placed. Is still following with [facility]. Last DEXA in 2012 was normal. [facility] is following her DEXAs now. Has completed colon screening, now over age 73. Fasting labs were d/w her. Vitals are stable. Follow up recommended in six months. Assessment & Plan (04/04/2019 4:06 PM BUSINESS BANKER): 73 year old presents for annual physical exam. She's UTD with [facility]. Colonoscopy is UTD. She's also 73 and [...] 04/04/2019 Assessment & Plan (03/05/2018 1:02 PM BUSINESS BANKER): TSH was a little high at end of December. Recheck at the end of the month as scheduled. Disorder of bone 02/03/2013 06/06/2022 Arthralgia of shoulder 01/29/201305/02 Assessment & Plan (01/19/2018 12:55 PM BUSINESS BANKER): Not able to do yoga. Ortho wants to do a replacement but she is not ready. Renal artery stenosis 12/29/20122017 Overview (05/30/2016): Renal artery stenosis Assessment & Plan (01/26/2018 3:05 PM BUSINESS BANKER): She had stent placed 10 years ago [...] 05/04/2023(Deferred: Patient Refused - Medicare, cannot give) Social History Tobacco Use Types Packs/Day Years [...] 06/12/2022 How often do you attend chur or voodoo services? 1 to 4 times per year 06/12/2022 Do you belong to any clubs o r organizations such as tenriism groups, unions, fraternal or athletic groups, or [...] staff should administer the PHQ-9) 0 05/03/2024 [facility] - Occupational Stress Questionnaire Answer Date [...] place to sleep or slept in a assisted (including now)? No 06/12/2022 Personal Safety Answer Date Recorded Have you ever been in or are you currently in a harmful physical or emotional relationship or is someone making you feel afraid or unsafe? Denies 01/06/2024 Comments No Sex and Gender Information Value Date Recorded Sex Assigned at Not on file Legal Sex Female 11:36 AM BUSINESS BANKER Gender Identity Not on file Sexual Orientation Not on file Last Filed Vital Signs Vital Sign Reading Time Taken Comments Blood Pressure 130/72 05/03/2024 11:28 AM CDT Pulse 77 05/03/2024 11:28 AM CDT Temperature 36.7 C (98 F) 01/06/2024 2:48 AM BUSINESS BANKER Respiratory Rate 16 01/06/2024 10:00 AM BUSINESS BANKER Oxygen Saturation 96% 05/03/2024 11:28 AM CDT Inhaled Oxygen Concentration - - Weight 57.6 kg (127 lb) 05/03/2024 11:28 AM CDT Height 170.2 cm (5' 7) 05/03/2024 11:28 AM CDT Body Mass Index 19.89 05/03/2024 11:28 AM CDT Plan of Treatment Not on file Goals Goal Patient Goal Type Associated Problems [...] AM CDT) Maggie Villeda, MADHAVI Note: Problem: Knowledge deficit related to signs [...] or provider. Medical Devices Explanted Type Area Freelance Copywriter Device Identifier Shelf Expiration Date Model / Serial / Lot [employer] [facility] Que[employer]o Flexi-Stent 5fr 3cm Small Pigtail Flexible .035in Stent 6551 - [id number] Implanted:Qty: 1 on 05/19/2022 at [facility] Explanted:Qty: 1 on 06/04/2022 at [facility] Stent N/A: Pancreas [employer] 09/22/2024 [id number] / / [id number] Description:Not present at o nset of procedure [employer] Wallflex 8mm 8.5fr 60mm 194cm Rapid Exchange Full Cover Closed [id number] - [id number] Implanted:Qty: 1 on 05/19/2022 by Kip Vanessa MD at [facility] Explanted:Qty: 1 on 06/04/2022 by Kip Vanessa MD at [facility] Stent N/A: Bile Duct [employer] 03/16/2024 [id number] / / [id number] Procedures Procedure Name Priority Date/Time Associated Diagnosis [...] postmenopausal osteoporosis. DXA BMD was done at [facility] on a [email or web address] W. Precision testing at this site is [...] postmenopausal osteoporosis. DXA BMD was done at [facility] on a [employer] W. Precision testing at this site is [...] by: Vanessa Novak M.D. Maggie Ward DNP [facility] DXA PROCEDURES Final Res ult * COLONOSCOPY REPORT (03/13/2015) Anatomical Region Laterality Modality Other Narrative 03/13/2015 Ordered by an unspecified provider. Historical Provider GI PROCEDURE ORDERABLES F inal Result from Last 3 Months or Most Recently Relevant to Health Maintenance Insurance [facility] MEDICARE ADVANTAGE [facility] Address: [address] [address] [place] [phone] [facility] MEDICARE ADVANTAGE [facility] MEDICARE ADVANTAGE Advance Directives For more information, please contact: [phone] * Full Code (Latest Code Status on File) Date Activated Date Inactivated Comments 06/04/2022 11:40 AM 06/04/2022 5:20 PM * Full Code Date Activated Date Inactivated Comments 05/19/2022 1:13 AM 05/23/2022 6:28 PM * Full Code Date Activated Date Inactivated Comments 04/23/2022 11:21 AM 04/27/2022 4:55 PM Care Teams In Store Marketing Representative Relationship Specialty Start Date End Date Tee Proctor DO [address] [place] [id number] [place] [address] PCP - General Family Medicine 05/19/18 Raz Hancock MD [address] [place] [address] Consulting Physician General Surgery 04/25/22
--- OUTSIDE RECORDS SUMMARY | 2024-09-17 15:43 | XMS_ITS | Clinical Summary ---
Author Organization [facility] Address [address] [place] [address] Care Team Providers Care [employer]ist Name Role Phone HiteshTee Raz HOPE Primary Care Provider [phone] Source Comments [facility],non-owned Affiliates and Associated Physician Practices is amultiple site organization consisting of ambulatory clinics and hospital sitesin [place], [place] and [place]. This disclosure is being madepursuant to the Care Everywhere program and may not contain all information available regarding this patient. Last updated 17.[facility] Allergies No known active allergies Medications * Be aware that medications may not be up to date on this document. Alwaysverify current medications with the patient. hydroCHLOROthia zide (HYDRODIURIL) 25 MG tablet Take 1 (one) tablet by mouth once daily 0 Active estradiol (ESTRACE) 1 MG tablet Take 1 (one) tablet by mouth once daily 1 Active escitalopram (LEXAPRO) 10 MG tablet Take 0.5 (one-half) tablet by mouth once daily 0 Active ALPRAZolam (XANAX) 0.5 MG tablet Take 1 (one) tablet by mouth nightly as needed 1 Active amLODIPine (NORVASC) 5 MG tablet Take 1 (one) tablet by mouth once daily 0 Active cetirizine (ZYRTEC) 10 MG tablet Take 1 (one) tablet by mouth once daily as needed Active Cholecalciferol 50 MCG (2000 UT) Take 1 (one) tablet by mouth once daily Active Vitamins/Minera ls TABS Take 1 (one) tablet by mouth once daily Active Magnesium Oxide 420 MG Take 1 tablet by mouth once daily Magnesium and potassium Active melatonin 5 MG tablet Take 1 (one) tablet by mouth at bedtime Active levothyroxine (SYNTHROID) 25 MCG tablet 2 Active triamcinolone acetonide (KENALOG) 0.025 % ointment APPLY TO AFFECTED AREA EVERY DAY 2 Active Active Problems Problem Noted Date Diagnosed Date Multiple closed fractures of facial bone 024 History of basal cell carcinoma (BCC) 08/22/2021 Multiple benign melanocytic nevi of upper and lower extremities and trunk 08/22/2021 Gallbladder polyp 06/19/2021 Overview (08/22/2021): RUQ US at [facility] May 2021 demonstrated gallbladder polyp but no wall thickening or stones. Recommend repeating US of RUQ in one year, has been ordered for [facility]. Right upper quadrant pain 06/14/2021 Overview (08/22/2021): Last Assessment & Plan: RUQ pain since last week midweek to end of the week time frame. This was accompanied with R posterior/lateral ribcage pain and nausea with dry heaving. Symptoms improved this week. High suspicion for gallbladder pathology. RUQ US ordered through [facility] as poor availability within [facility] system. R ribcage and chest x rays ordered for today and labs. If patient has severe pain with dry heaving again, was instructed to go to ER for evaluation. Gastroesophageal reflux disease without esophagi tis 06/14/2021 Overview (08/22/2021): Last Assessment & Plan: She's noticed a lot of belching. Has epigastric discomfort. Avoid NSAIDs. One month of PPI given. Recommend anti reflux diet. Other seborrheic dermatitis 06/03/2021 Neoplasm of uncertain behavior of skin 2 Actinic keratosis 06/03/2021 History of malignant melanoma 01/05/2021 Inflamed seborrheic keratosis 01/05/2021 Seborrheic keratosis 01/05/2021 Solar lentiginosis 01/05/2021 Melanocytic nevi of trunk 01/05/2021 Actinic skin damage 05/24/2020 Immunizations Immunization Administration Dates Next Due INFLUENZA VACCINE, TRIV. (AF LURIA, FLUZONE TRIVALENT; 6MO+) (IIV3) 12/09/2013 Covid [employer] primary monoval ent 12+ yr 0.3mL Purple cap 04/12/2020 INFLUENZA VACCINE, CELL CULT URE, QUADR. (FLUCELVAX QUADRIVALENT; 6MO+) (CCIIV4) 12/16/2019 INFLUENZA VACCINE, HIGH-DOSE , QUADR. (FLUZONE HIGH-DOSE QUADRIVALENT; 65Y+), 0.7 ML (HD-IIV4) 11/30/2018,01/19/2018,01/13/2017,2015,12/25/2014,11/30/2012,11/28/2011,0 2010 INFLUENZA VACCINE, QUADR. (A FLURIA, FLUZONE QUADRIVALENT; 6MO+) (IIV4) 01/14/2010 PNEUMOCOCCAL PPSV23 03/09/2009 Pneumococcal Pcv13 Conj 12/25/2014,02/23/2009 TDAP (7yrs+) 11/28/2011 Family History Medical History Relation Name Comments None Known Brother Cancer - Skin, Melanoma Daughter None Known Father None Known Maternal Aunt None Known Maternal Grandfather None Known Maternal Grandmother None Known Maternal Uncle None Known Mother None Known Other None Known Paternal Aunt None Known Paternal Grandfather None Known Paternal Grandmother None Known Paternal Uncle Cancer - Skin, Melanoma Sister Asthma Neg Hx CVA Neg Hx Cancer - Breast Neg Hx Cancer - Other Neg Hx Cancer - Skin, Non Melanoma Neg Hx Eczema Neg Hx Hemophilia Neg Hx Psoriasis Neg Hx Relation Name Status Comments Brother Daughter Father Maternal Aunt Maternal Grandfather Maternal Grandmother Maternal Uncle Mother Other Paternal Aunt Paternal Grandfather Paternal Grandmother Paternal Uncle Sister Social History Tobacco Use Types Packs/Day Years Used Date Smoking Tobacco: Never Smokeless Tobacco: Never Alcohol Use Standard Drinks/Week Comments Yes 0 (1 standard drink = 0.6 oz pur e alcohol) socially; once a week Comments Unknown Sex and Gender Information Value Date Recorded Sex Assigned at Not on file Legal Sex Female 3:42 PM CDT Gender Identity Not on file Sexual Orientation Not on file Last Filed Vital Signs Vital Sign Reading Time Taken Comments Blood Pressure 147/87 06/25/2021 11:33 AM CDT Pulse 57 06/25/2021 11:33 AM CDT Temperature - - Respiratory Rate - - Oxygen Saturation - - Inhaled Oxygen Concentration - - Weight 60.8 kg (134 lb) 06/25/2021 9:27 AM CDT Height 170.2 cm (5' 7) 06/25/2021 9:27 AM CDT Body Mass Index 20.99 06/25/2021 9:27 AM CDT Plan of Treatment Upcoming Encounters Date Type Department Care Team (Late st Contact Info) Description 11/02/2024 1:10 PM CDT Office Visit [facility] - Dermatology [address] [place] [address], [place] [id number] Hiro Manuel MD [address] [place] [address] [address] [place] [id number] Health Maintenance Due Date Last Done Comments ZOSTER VACCINE (1 of 2) 11/11/1993 Respiratory Syncytial Virus (RSV) Vaccine Pt: or over 60 yrs (1 - 1-dose 75+ series) 11/11/2018 DTAP/TDAP/TD VACCINES (2 - Td or Tdap) 11/27/2021 11/28/2011 COVID-19 VACCINE ( season) 2023 06/28/2020, 04/28/2020, 04/12/2020 DEPRESSION SCREENING 02/24/2024 MEDICARE AWV CALENDAR YEAR 2024 INFLUENZA VACCINE (#1) 2024 3, 02/06/2022, 01/20/2022, Additional history exists PNEUMOCOCCAL VACCINE 50+ Completed 015, 03/09/2009, 02/23/2009 BONE DENSITY TESTING Completed 10/08/2022, 12/01/19 13 HEPATITIS B VACCINE Aged Out No longe r eligible based on patient's age to complete this topic HIB VACCINE Aged Out No longer eligi ble based on patient's age to complete this topic HPV VACCINE Aged Out No longer eligi ble based on patient's age to complete this topic MENINGOCOCCAL (Group B) VACCINE SHARED DECISION-MAKING Aged Out No longer eligible based on patient's age to complete this topic MENINGOCOCCAL GROUPS A/C/Y/W VACCINE Aged Out No longer eligible based on patient's age to complete this topic Insurance [facility] MANAGED MEDICARE ADV [facility] MANAGED MEDICARE ADV Member Subscriber Plan / Payer (Ef fective 2020-Present) Name:Maite Jaquez Relation to Subscriber:Self Name:MAITE JAQUEZ Payer ID:[id number] (NAIC) Type:Medicare-Managed Care Address: [address] MANAGED MEDICARE ADV Member Subscriber Plan / Payer (Ef fective 2020-Present) Name:Maite Jaquez Relation to Subscriber:Self Name:MAITE JAQUEZ Payer ID:[id number] (NAIC) Type:Medicare-Managed Care Address: [address] MANAGED MEDICARE ADV Member Subscriber Plan / Payer (Ef fective 2020-Present) Name:Maite Jaquez Relation to Subscriber:Self Name:MAITE JAQUEZ Payer ID:[id number] (NAIC) Type:Medicare-Managed Care Address: [address] MANAGED MEDICARE ADV Member Subscriber Plan / Payer (Ef fective 2020-Present) Name:Maite Jaquez Relation to Subscriber:Self Name:MAITE JAQUEZ Payer ID:[id number] (NAIC) Type:Medicare-Managed Care Address: [address] MANAGED MEDICARE ADV MANAGED MEDICARE ADV MANAGED MEDICARE ADV MANAGED MEDICARE ADV MANAGED MEDICARE ADV MANAGED MEDICARE ADV Member Subscriber Plan / Payer (Ef fective 2020-) Name:Maite Jaquez Relation to Subscriber:Self Name:MAITE JAQUEZ Payer ID:[id number] (NAIC) Type:Medicare-Managed Care Address: [address] MANAGED MEDICARE ADV Member Subscriber Plan / Payer (Ef fective 2020-Present) Name:Maite Jaquez Relation to Subscriber:Self Name:MAITE JAQUEZ Payer ID:[id number] (NAIC) Type:Medicare-Managed Care Address: [address] MANAGED MEDICARE ADV Member Subscriber Plan / Payer (Ef fective 2020-Present) Name:Maite Jaquez Relation to Subscriber:Self Name:MAITE JAQUEZ Payer ID:[id number] (NAIC) Type:Medicare-Managed Care Address: [address] MANAGED MEDICARE ADV MANAGED MEDICARE ADV [facility] MEDICARE ADV [place] [id number] Care Teams [employer] Relationship Specialty Start Date End Date Tee Proctor DO PCP - General 05/18/20
--- NOTE | 2024-09-17 15:49 | ED.URI ---
HPI - URI/Sore Throat General Chief Complaint: Upper Respiratory Infection Stated Complaint: congestion/sinus pressure Time Seen by Provider: 09/17/24 15:45 Source: patient Mode of arrival: ambulatory Limitations: no limitations History of Present Illness HPI Narrative: patient is an 78-year-old female who presents with congestion, sinus pressure, dry cough and hoarseness since August 26. States 1 week ago she started having a low-grade fever and symptoms worsened. Denies any nausea, vomiting, diarrhea. Has been taking [id number] medications with no relief. Related Data Home Medications ?Medication ?Instructions ?Recorded ?Confirmed ?Last Taken ?Type alprazolam 0.5 mg tablet mg 09/17/24 Unknown History amlodipine 10 mg tablet mg 09/17/24 Unknown History escitalopram oxalate 10 mg tablet mg 09/17/24 Unknown History levothyroxine 25 mcg tablet mcg 09/17/24 Unknown History Allergies Allergy/AdvReac Type Severity Reaction Status Date / Time No Known Allergies Allergy Verified 09/17/24 16:00 Review of Systems Review of Systems: All systems reviewed & are unremarkable except as noted in HPI and below Constitutional: Constitutional: Denies chills, Denies fatigue, Reports fever(s), Denies headache(s), Denies malaise and Denies weakness Eyes: Eyes: Denies blurry vision, Denies itchy eyes and Denies loss of vision ENT: Denies otalgia, Denies headache(s), Reports hoarseness, Reports nasal congestion, Reports sinus pain, Reports sinus pressure and Denies sore throat Cardiovascular: Cardiovascular: Denies chest pain, Denies irregular heart rhythm and Denies dyspnea Respiratory: Respiratory: Reports cough and Denies dyspnea Gastrointestinal: Gastrointestinal: Denies abdominal pain, Denies diarrhea, Denies nausea and Denies vomiting Musculoskeletal: Musculoskeletal: Denies back pain, Denies myalgias and Denies arthralgias Integumentary/Breasts: Skin/Breast: Denies pruritus and Denies rash Neurologic: Denies headache(s), Denies loss of vision and Denies weakness Psychiatric: Psychiatric: Reports no additional psychiatric complaints Endocrine: Endocrine: Denies fatigue Allergic/Immunologic: Allergic/Immunologic: Denies itchy eyes PMFSH Comments At time of signature, agree with nursing past medical, surgical, social and family history. There is no relevant family history pertinent to the presenting complaint. Exam Const: General: cooperative, healthy appearing, comfortable, no acute distress and well nourished Nutritional Appearance: well nourished Orientation/consciousness: patient oriented x3 Limitations: no limitations HENMT: Head: normal to inspection, normocephalic and atraumatic Ears: hearing grossly normal bilaterally, external ears normal, TM's normal bilaterally, EAC's normal and no periauricular adenopathy Face/Nose/Sinus: Normal external nose present, Abnormal mucous membranes and turbinates present erythematous bilateral and diffuse, normal facial exam, face symmetric and Facial tenderness on exam of face and sinuses Face and sinus: normal facial exam, face symmetric and sinus tenderness Mouth: Yes Normal oral and palatal mucosa present, Yes lip normal, Yes tongue normal, Yes Normal salivary glands and ducts present, Yes oropharynx normal and Yes moist mucous membranes Teeth and gingiva: dentition normal Throat: posterior oropharynx normal, tonsils normal and uvula midline Eyes: General: appearance normal, both eyes and all related structures Alignment and Position: alignment normal and position normal Periorbital: periorbital findings normal Eyelids: eyelids normal Pupils: Equal, round and reactive pupils present Neck: Neck: normal visual inspection, full ROM, no lymphadenopathy and supple Chest: Chest palpation & inspection: normal inspection of the chest and normal palpation of entire chest wall Resp: Effort & Inspection: normal respiratory effort and able to speak in complete sentences Auscultation: clear to auscultation bilaterally, no crackles, no rales, no rhonchi and no wheezes Cardio: Rate: regular rate Rhythm: regular rhythm Heart sounds: S1 normal heart sound present and S2 normal heart sound present GI: Inspection: normal to inspection Skin: General skin exam: normal color and no rashes or lesions noted Neuro: General: patient oriented x3 and moves all extremities Cranial nerves: Yes Equal, round and reactive pupils present Speech: normal speech Gait exam (Neuro): Normal gait present Extrem: General: normal to inspection, full ROM and no edema Psych: Appearance: grossly normal and well kempt Mental Status: mental status grossly normal Speech and movement: Normal speech and movement present Affect: normal affect Attitude: cooperative Thought process: Normal thought process present Course Course Emergency Course: Discharge instructions reviewed with patient, as well as provided in writing per nursing staff. The instructions also include specific and strict return/GO TO THE ER as well as f/u information. All questions have been answered, and the patient deny any further questions with discharge and discharge plan. Portions of this record may have been created with voice recognition software Level of Care: Express Care Visit Vital Signs Vital signs: Reviewed MDM - URI/Sore Throat MDM Narrative Medical decision making narrative: Pt well hydrated appearing, in no respiratory distress, hemodynamically stable. Recommend supportive care. The patient is stable at time of discharge the clinical impression was discussed and the patient was given the opportunity to ask questions, which were addressed as completely as possible given the information available at present. Anticipatory guidance and return to care precautions were discussed and the importance of primary care follow-up was stressed and encouraged. The patient voiced understanding of the plan, indications to return, and the need for follow-up. Exam findings show no acute concerns or changes Patient is appropriate for outpatient treatment and follow-up. Differential diagnosis considered: Reyes virus, strep pharyngitis, allergic rhinitis, upper respiratory tract infection, sinusitis, rhinosinusitis, nasopharyngitis. viral pharyngitis, otitis media, otitis externa, otitis effusion, foreign body, cerumen impaction, viral syndrome, and influenza.? Medical Records Attestation: I reviewed the patient's medical records. Discharge Plan Discharge Clinical Impression: Sinusitis Qualifiers: Sinusitis location: pansinusitis Chronicity: acute Recurrence: non-recurrent Qualified Code(s): J01.40 - Acute pansinusitis, unspecified Patient Disposition: Home Condition: Stable Instructions: Sinusitis (ED) Additional Instructions: take steroids per package instructions. Take antibiotics until complete Nonprescription pain medications, such as acetaminophen (eg, Tylenol) or ibuprofen (eg, Motrin, Advil), are recommended for pain. Flushing the nose and sinuses with a saline solution several times per day has been proven to decrease pain associated with congestion and shorten the duration of symptoms. Nasal steroids (such as Flonase, 2 sprays in each nostril daily) can help to reduce swelling inside the nose, usually within two to three days. These drugs have few side effects and relieve symptoms in most people. Nasal decongestant sprays, including oxymetazoline (Afrin) and phenylephrine (Reese-Synephrine), can be used to temporarily treat congestion. However, these sprays should not be used for more than two to three days due to the risk of rebound congestion (when the nose becomes congested constantly unless the medication is used repeatedly), possible addiction, and long-term consequences of frequent use, including persistent nasal dryness and crusting, which is very difficult to treat once it has developed. Please follow-up with your primary care doctor in the next 1-2 days. If you cannot follow-up with your primary care doctor please go to the ED for any urgent issues. If you have any worsening of symptoms or any other concerns please go to the ED immediately. Patient Language: Icelandic Prescriptions: New methylprednisolone [Medrol (Herbert)] 4 mg tablets,dose pack See Rx Instructions .ROUTE .COMPLEX Qty: 21 0RF Rx Instructions: orally per package directions fluticasone propionate [Flonase Allergy Relief] 50 mcg/actuation spray,suspension 1 spray intranasal DAILY Qty: 16 0RF Rx Instructions: administer into each nostril amoxicillin-pot clavulanate 875-125 mg tablet 1 tablet PO Q12H 10 Days Qty: 20 0RF No Action levothyroxine 25 mcg tablet alprazolam 0.5 mg tablet amlodipine 10 mg tablet escitalopram oxalate 10 mg tablet Follow-up/Referrals: Hitesh,Tee [Other] - 3 Days Time of Disposition: 16:32
[2024-09-17 15:53] VITALS: BP 134/70; PULSE 83; RESP 18; TEMP 36.6; O2SAT 99
== END 2024-09-17 16:32 | disposition home or self-care (01) ==
PROVIDERS: Emergency Provider Nurse Practitioner Family
DX: J01.40 Acute pansinusitis, unspecified (principal); I10 Essential (primary) hypertension; M19.90 Unspecified osteoarthritis, unspecified site; E03.9 Hypothyroidism, unspecified; F41.9 Anxiety disorder, unspecified; Z86.16 Personal history of COVID-19
CPT/HCPCS: 99203; G0463